=== PATIENT | female | born 1970 | race Caucasian/White ===

== ENCOUNTER 2021-04-29 12:56 | Emergency (ER) | payer OTHER, SELFPAY ==
--- NOTE | ~2021-04-29 | XR_ITS ---
EXAMINATION: XR foot LT min 3V DATE: 04/29/2021 13:18 INDICATION: Left foot injury. TECHNIQUE: 4 views of left foot were obtained. COMPARISON: None. FINDINGS: Bone alignment is normal. No fracture. There is mild osteoarthritis of first metatarsophala ngeal joint and some of the interphalangeal joints and midfoot joints. There are enthesophytes at the posterior and plantar aspects of calcaneal tuberosity. IMPRESSION: 1. Mild polyarticular osteoarthritis. Reviewed, dictated and finalized at location A.
--- NOTE | 2021-04-29 13:01 | ED.LOWEXIN ---
HPI - Extremity Injury (Lower) General Chief Complaint: Extremity Injury, Lower Stated Complaint: Left foot Pain Source: patient and RN notes reviewed Limitations: no limitations History of Present Illness HPI Narrative: The patient, previously mostly healthy presents with left ankle pain. Patient states she has 1 day history of lateral left ankle pain that began when she slipped off a diving board yesterday. No bleeding, deformity; symptoms are mild, worse with activity better with rest or elevation, located laterally. Related Data Home Medications Medication Instructions Recorded Confirmed atorvastatin 20 mg PO DAILY 04/29/21 04/29/21 cyanocobalamin (vitamin B-12) 1,000 mcg IM MONTHLY 04/29/21 04/29/21 levothyroxine 88 mcg PO DAILY 04/29/21 04/29/21 Allergies Allergy/AdvReac Type Severity Reaction Status Date / Time phenazopyridine Allergy Migraine Verified 04/29/21 13:19 [From Pyridium] Review of Systems Review of Systems: Narrative: General/Constitutional: No weight loss,fever Eyes: N0: Redness,discharge Ears/Nose/Throat: No: Epistaxis,ear discharge Respiratory: Denies: Hemoptysis Gastrointestinal: No Vomiting, Bleeding-rectal Skin: No Lumps, eruption Neurologic: No Focal Weakness,Sz Hematologic: Denies: Petechiae/Purpura Psychiatric: No: Suicida ideationl All Other Systems: Reviewed and Negative PMFSH Comments At time of signature, agree with nursing past medical, surgical, social and family history. There is no relevant family history pertinent to the presenting complaint Exam Narrative: Exam Narrative: General Appearance: Well appearing, , Conjunctiva clear Ears: External ear normal, Auditory canal normal Nose: Normal nose, Nares clear Mouth/Throat: Normal appearing, Normal lips, Supple Respiratory: Airway patent, No respiratory distress Musculoskeletal: Normal strength (mostly intact, limited flexion/extension by pain), Tenderness ( laterally, with mild decreased ROM), Swelling (laterally), Other (no anterior drawer, no collateral laxity, no Achilles tenderness, no fifth MT tenderness) Skin: Warm, Dry, Normal color Neurological: A&O x3, , Normal affect Course Course Emergency Course: Films visualized, interpreted by radiologist, agree, normal see report Vital Signs Vital signs: Vital Signs Temperature 97.6 F 04/29/21 13:16 Pulse Rate 83 04/29/21 13:16 Respiratory Rate 16 04/29/21 13:16 Blood Pressure 132/97 H 04/29/21 13:16 Pulse Oximetry 100 04/29/21 13:16 Temperature 97.6 F 04/29/21 13:19 Pulse Rate 83 04/29/21 13:19 Respiratory Rate 16 04/29/21 13:19 Blood Pressure 132/97 H 04/29/21 13:19 Pulse Oximetry 100 04/29/21 13:19 Discharge Plan Discharge Clinical Impression: Left ankle sprain Qualifiers: Encounter type: initial encounter Involved ligament of ankle: unspecified ligament Qualified Code(s): S93.402A - Sprain of unspecified ligament of left ankle, initial encounter Patient Disposition: Home, Self-Care Condition: Stable Instructions: Ankle Sprain (ED) Additional Instructions: Try rehab/therapy exercises [provided], OTC splint See podiatry, PMD in follow-up Prescriptions: New tramadol 50 mg tablet 50 mg PO Q6H PRN (Reason: pain) Qty: 15 RF: 1 No Action atorvastatin 20 mg tablet 20 mg PO DAILY RF: 0 levothyroxine 88 mcg tablet 88 mcg PO DAILY RF: 0 cyanocobalamin (vitamin B-12) 1,000 mcg/mL solution 1,000 mcg IM MONTHLY RF: 0 Follow-up/Referrals: PHYSICIAN,GLASS SELECTOR [Primary Care Provider] -
[2021-04-29 13:16] VITALS: BP 132/97; PULSE 83; RESP 16; TEMP 36.4; O2SAT 100
[2021-04-29 13:19] VITALS: BP 132/97; PULSE 83; RESP 16; TEMP 36.4; O2SAT 100
== END 2021-04-29 13:40 | disposition home or self-care (01) ==
PROVIDERS: Emergency Provider Emergency Medicine
DX: S93.402A Sprain of unspecified ligament of left ankle, initial encounter (principal); W17.89XA Other fall from one level to another, initial encounter; E03.9 Hypothyroidism, unspecified
CPT/HCPCS: 73630; 99203; G0463

== ENCOUNTER 2021-07-16 15:45 | Outpatient (CLI) | payer OTHER, SELFPAY ==
--- NOTE | ~2021-07-16 | US_ITS ---
EXAMINATION: US thyroid DATE: 07/16/2021 16:06 INDICATION: Nontoxic goiter. TECHNIQUE: Multiple ultrasound images of the thyroid were obtained. COMPARISON: None. FINDINGS: The right thyroid lobe measures 4.1 x 1.6 x 1.2 cm. The left thyroid lobe measures 3.4 x 1.1 x 1.1 c m. The thyroid demonstrates diffusely heterogeneous hypoechogenicity. Vascularity is normal. No disc rete nodule. IMPRESSION: 1. Heterogeneous thyroid, likely chronic lymphocytic (Asher) thyroiditis. Reviewed, dictated and finalized at location B.
== END 2021-07-16 15:46 | disposition home or self-care (01) ==
LOC: ANHIMG 15:48
PROVIDERS: Visit Provider Internal Medicine Endocrinology, Diabetes & Metabolism
DX: E04.9 Nontoxic goiter, unspecified (principal)
CPT/HCPCS: 76536

== ENCOUNTER 2021-09-11 16:07 | Outpatient (CLI) | payer OTHER, SELFPAY ==
--- NOTE | ~2021-09-11 | MR_ITS ---
EXAMINATION: MR brain IAC wo/w con DATE: 09/11/2021 17:12 INDICATION: Dizziness. Right-sided tinnitus and hearing loss. TECHNIQUE: Magnetic resonance imaging (MRI) of the brain, brainstem, and internal auditory canals was performed without and with 16 mL MultiHance intravenous contrast. Sequences included sagittal and ax ial T1-weighted FSE, axial diffusion-weighted FS EPI, axial T2*-weighted GRE, axial T2-weighted FLAIR Propeller, axial T2-weighted Propeller, small zvqba-bv-husz coronal FIESTA, small eypjp-zw-jqsj angelica nal T1-weighted FSE, and small qrhsa-wv-sssj axial T1-weighted SPGR. Postcontrast sequences included axial T1-weighted FSE, small xxwsd-rb-knpr coronal T1-weighted FSE, and small hywrk-it-dmck axial T1- weighted SPGR. Apparent diffusion coefficient (ADC) maps were created. COMPARISON: None. FINDINGS: There is no intracranial hemorrhage, acute infarction, or abnormal intracranial mass lesion . The ventricles are normal in size. The orbits are normal. The paranasal sinuses are clear. The inte rnal auditory canals and inner and middle ears are normal. The mastoid air cells are normal. IMPRESSION: 1. Normal brain. Reviewed, dictated and finalized at location A. IMPRESSION: 1. Normal brain.
[2021-09-11 16:32] LABS: Estimated Glomerular Filt Rate > 60
== END 2021-09-11 16:08 | disposition home or self-care (01) ==
PROVIDERS: PCP Internal Medicine Endocrinology, Diabetes & Metabolism; Visit Provider Otolaryngology
DX: R42 Dizziness and giddiness (principal)
CPT/HCPCS: 70553; A9577

== ENCOUNTER 2023-02-25 14:22 | Outpatient (CLI) | payer OTHER, SELFPAY ==
[2023-02-25 14:36] LABS: Basophils Percent Auto 0.3 % (0.2-1.2); Eosinophils Absolute Auto 0.2 K/mm3 (0-0.3); Eosinophils Percent Auto 4.4 % (0-4.4); Hematocrit 40.6 % (37.0-47.0); Hemoglobin 13.3 g/dL (12.0-15.0); Immature Granulocyte Absolute 0.01 K/mm3 (0.00-0.031); Immature Granulocyte Percent A 0.3 % (0-0.5); Lymphocytes Percent Auto 30.9 % (18.3-44.2); Mean Corpuscular HGB Conc 32.8 g/dl (32-36); Mean Corpuscular Hemoglobin 30.1 pg (26-34); Mean Corpuscular Volume 91.9 fl (80-100); Mean Platelet Volume 9.9 fl (7.4-10.4); Monocytes Absolute Auto 0.4 K/mm3 (0.1-0.6); Monocytes Percent Auto 10.1 % (2.6-8.5); Neutrophils Absolute Auto 2.1 K/mm3 (1.3-6.7); Platelet Count Result 239 k/mm3 (150-375); Red Blood Count 4.42 M/mm3 (4.2-5.4); Red Cell Distribution Width 12.7 % (11.5-14.5); White Blood Count 3.9 K/mm3 (4.5-10.0)
[2023-02-25 16:28] LABS: Alanine Aminotransferase 23 U/L (6-35); Albumin Level 4.5 g/dL (3.5-5.1); Alkaline Phosphatase 92 U/L (38-126); Anion Gap 11 mmol/L (8-16); Aspartate Amino Transferase 31 U/L (14-36); Bilirubin,Total 0.5 mg/dL (0.2-1.3); Blood Urea Nitrogen 15 mg/dL (7-17); Calcium 9.1 mg/dL (8.4-10.2); Carbon Dioxide 26 mmol/L (22-30); Chloride 101 mmol/L (98-107); Estimated Glomerular Filt Rate > 60; Glucose 86 mg/dL (65-110); Sodium 138 mmol/L (137-145)
[2023-02-25 16:43] LABS: Iron 62 ug/dL (37-170); Percent Iron Saturation 20 % (20-50)
[2023-02-25 17:46] LABS: Folic Acid 5.7 ng/mL (2.76->20)
[2023-02-28 09:30] LABS: Methylmalonic Acid 110 nmol/L (87-318)
== END 2023-02-25 14:23 | disposition home or self-care (01) ==
LOC: ANHLAB 14:23
PROVIDERS: PCP Internal Medicine Endocrinology, Diabetes & Metabolism; Visit Provider Internal Medicine Hematology & Oncology
DX: D64.9 Anemia, unspecified (principal)
CPT/HCPCS: 36415; 80053; 82607; 82728; 82746; 83540; 83550; 83921; 85025

== ENCOUNTER 2023-05-04 11:45 | Outpatient (CLI) | payer OTHER, SELFPAY ==
[2023-05-04 12:13] LABS: Basophils Percent Auto 0.4 % (0.2-1.2); Eosinophils Absolute Auto 0.1 K/mm3 (0-0.3); Eosinophils Percent Auto 3.1 % (0-4.4); Hematocrit 41.1 % (37.0-47.0); Hemoglobin 13.8 g/dL (12.0-15.0); Immature Granulocyte Absolute 0.01 K/mm3 (0.00-0.031); Immature Granulocyte Percent A 0.2 % (0-0.5); Lymphocytes Percent Auto 28.5 % (18.3-44.2); Mean Corpuscular HGB Conc 33.6 g/dl (32-36); Mean Corpuscular Hemoglobin 29.9 pg (26-34); Mean Corpuscular Volume 89.2 fl (80-100); Mean Platelet Volume 9.5 fl (7.4-10.4); Monocytes Absolute Auto 0.5 K/mm3 (0.1-0.6); Monocytes Percent Auto 10.1 % (2.6-8.5); Neutrophils Absolute Auto 2.6 K/mm3 (1.3-6.7); Neutrophils Percent Auto 57.7 % (45.5-73.1); Platelet Count Result 266 k/mm3 (150-375); Red Blood Count 4.61 M/mm3 (4.2-5.4); Red Cell Distribution Width 12.9 % (11.5-14.5); White Blood Count 4.6 K/mm3 (4.5-10.0)
[2023-05-04 16:17] LABS: Iron 70 ug/dL (37-170)
[2023-05-04 16:19] LABS: Alanine Aminotransferase 34 U/L (6-35); Albumin Level 4.6 g/dL (3.5-5.1); Alkaline Phosphatase 104 U/L (38-126); Anion Gap 10 mmol/L (8-16); Aspartate Amino Transferase 37 U/L (14-36); Bilirubin,Total 0.5 mg/dL (0.2-1.3); Blood Urea Nitrogen 14 mg/dL (7-17); Calcium 9.1 mg/dL (8.4-10.2); Carbon Dioxide 27 mmol/L (22-30); Chloride 101 mmol/L (98-107); Estimated Glomerular Filt Rate > 60; Glucose 93 mg/dL (65-110); Potassium 4.3 mmol/L (3.4-5.0); Sodium 138 mmol/L (137-145)
[2023-05-04 16:29] LABS: Percent Iron Saturation 21 % (20-50)
[2023-05-04 17:24] LABS: Folic Acid 5.8 ng/mL (2.76->20)
[2023-05-06 09:29] LABS: Methylmalonic Acid 107 nmol/L (87-318)
== END 2023-05-04 11:46 | disposition home or self-care (01) ==
LOC: ANHLAB 11:47
PROVIDERS: Visit Provider Internal Medicine Hematology & Oncology
DX: D64.9 Anemia, unspecified (principal)
CPT/HCPCS: 36415; 80053; 82607; 82728; 82746; 83540; 83550; 83921; 85025

== ENCOUNTER 2024-01-12 09:16 | Outpatient (CLI) | payer OTHER, SELFPAY ==
[2024-01-12 09:39] LABS: Basophils Percent Auto 0.5 % (0.2-1.2); Eosinophils Absolute Auto 0.2 K/mm3 (0-0.3); Eosinophils Percent Auto 4.2 % (0-4.4); Hematocrit 38.8 % (37.0-47.0); Lymphocytes Absolute Auto 1.08 K/mm3 (0.9-3.2); Lymphocytes Percent Auto 28.3 % (18.3-44.2); Mean Corpuscular HGB Conc 33.5 g/dl (32-36); Mean Corpuscular Hemoglobin 29.5 pg (26-34); Mean Corpuscular Volume 88.2 fl (80-100); Monocytes Absolute Auto 0.4 K/mm3 (0.1-0.6); Monocytes Percent Auto 9.4 % (2.6-8.5); Neutrophils Absolute Auto 2.2 K/mm3 (1.3-6.7); Neutrophils Percent Auto 57.6 % (45.5-73.1); Platelet Count Result 253 k/mm3 (150-375); Red Cell Distribution Width 13.5 % (11.5-14.5); White Blood Count 3.8 K/mm3 (4.5-10.0)
[2024-01-12 10:31] LABS: Iron 104 ug/dL (37-170)
[2024-01-12 10:38] LABS: Alanine Aminotransferase 23 U/L (6-35); Albumin Level 4.2 g/dL (3.5-5.1); Alkaline Phosphatase 95 U/L (38-126); Anion Gap 7 mmol/L (8-16); Aspartate Amino Transferase 34 U/L (14-36); Bilirubin,Total 0.6 mg/dL (0.2-1.3); Blood Urea Nitrogen 15 mg/dL (7-17); Calcium 9.5 mg/dL (8.4-10.2); Carbon Dioxide 30 mmol/L (22-30); Chloride 104 mmol/L (98-107); Estimated Glomerular Filt Rate > 60; Glucose 115 mg/dL (65-110); Potassium 4.1 mmol/L (3.4-5.0); Sodium 141 mmol/L (137-145)
[2024-01-12 10:43] LABS: Immunoglobulin A 565 mg/dL (70-400); Immunoglobulin G 1794 mg/dL (700-1600); Immunoglobulin M 78 mg/dL (40-230)
[2024-01-12 10:48] LABS: Percent Iron Saturation 36 % (20-50)
[2024-01-12 11:40] LABS: Folic Acid 11.5 ng/mL (2.76->20)
[2024-01-14 15:38] LABS: Albumin 4.2 g/dL (3.8-4.8); Alpha 1 Globulin 0.3 g/dL (0.2-0.3); Alpha 2 Globulin 0.8 g/dL (0.5-0.9); Beta 1 Globulin 0.5 g/dL (0.4-0.6); Gamma Globulin 1.5 g/dL (0.8-1.7); Protein, Total 7.9 g/dL (6.1-8.1)
[2024-01-14 21:09] LABS: Lambda Light Chain 20.6 mg/L (5.7-26.3)
== END 2024-01-12 09:17 | disposition home or self-care (01) ==
PROVIDERS: Visit Provider Internal Medicine Hematology & Oncology
DX: D64.9 Anemia, unspecified (principal)
CPT/HCPCS: 36415; 80053; 82607; 82728; 82746; 82784; 83540; 83550; 83883; 84155; 84165; 85025

== ENCOUNTER 2024-02-17 14:32 | Emergency (ER) | payer OTHER, SELFPAY ==
--- NOTE | ~2024-02-17 | XR_ITS ---
EXAMINATION: XR finger 4th LT min 2V INDICATION: Left fourth finger pain, initial encounter TECHNIQUE: Three views of the left fourth finger are obtained. COMPARISON: None available FINDINGS: There is an acute, traumatic, closed, comminuted, transverse fracture in the proximal neck of the fourth proximal phalanx. There is mild dorsal angulation at the fracture site. One plane of th e fracture may extend to the fourth metacarpophalangeal joint. There is mild osteoarthritis of the vi sualized interphalangeal joints. There is soft tissue swelling of the fourth finger IMPRESSION: 1. Comminuted fracture in the proximal neck of the fourth proximal phalanx with mild angulation and p ossible extension to the metacarpophalangeal joint. Reviewed, dictated and finalized at location F. IMPRESSION: 1. Comminuted fracture in the proximal neck of the fourth proximal phalanx with mild angulation and possible extension to the metacarpophalangeal joint.
--- NOTE | 2024-02-17 14:54 | ED.UPPEXIN ---
HPI - Extremity Injury (Upper) General Chief Complaint: Extremity Injury, Upper Stated Complaint: finger injury Time Seen by Provider: 02/17/24 14:54 Source: patient Mode of arrival: ambulatory Limitations: no limitations History of Present Illness HPI narrative: 53 y/o female presented for c/o left ring finger pain and swelling after falling today at work. 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 Pt removed her wedding rings immediately. Endorses decreased ROM of the finger due to pain. Most pain to the knuckle (MCP). Has applied ice and taken ibuprofen. Related Data Home Medications Medication Instructions Recorded Confirmed cyanocobalamin (vitamin B-12) 1,000 mcg IM MONTHLY 04/29/21 04/29/21 1,000 mcg/mL injection solution levothyroxine 100 mcg tablet 100 mcg PO DAILY 02/17/24 02/17/24 (Synthroid) venlafaxine 37.5 mg mg PO 02/17/24 capsule,extended release 24 hr Allergies Allergy/AdvReac Type Severity Reaction Status Date / Time iodine Allergy Hives Verified 02/17/24 14:52 iohexol AdvReac Migraine Verified 02/17/24 14:53 [From contrast - CT, X-RAY] phenazopyridine AdvReac Migraine Verified 02/17/24 14:52 [From Pyridium] Review of Systems Review of Systems: CONSTITUTIONAL: Denies body aches, fever, chills EYES: Denies visual changes ENT: Denies rhinorrhea, congestion CARDIOVASCULAR: Denies chest pain, palpitations, or edema. RESPIRATORY: Denies cough or dyspnea. SKIN: Denies rash, itching, or wounds. MUSCULOSKELETAL: Reports left ring finger pain Denies back pain, neck pain NEUROLOGIC: Denies headache, numbness, tingling, or weakness. All systems reviewed & are unremarkable except as noted in HPI and below PMFSH Comments At time of signature, I have reviewed and agree with nursing past medical, surgical, social and family history unless otherwise noted. Please see nursing chart for further information. There is no relevant family history pertinent to the presenting complaint Exam Narrative: GENERAL: Well-appearing CHEST: Speaks in full sentences. No respiratory distress. HEART: Regular rate and rhythm. Normal and equal peripheral pulses. EXTREMITIES: Left 4th digit has slightly decreased range of motion with flexion/extension due to pain with movement. Mild TTP to DIP and MCP, mild swelling and ecchymosis to palmar surface of MCP. Normal strength and sensation. No open wounds, or obvious deformity; alignment normal, pulse palpable and equal bilaterally, skin warm, dry, pink. Capillary refill less than 3 seconds. SKIN: Warm, dry NEURO: Alert and oriented x3. PSYCH: Normal mood and affect Course Course Emergency Course: Patient is aware of diagnosis, understands and agrees to treatment plan. Anticipatory guidance given. Patient agrees to follow-up as directed and is aware of reasons to seek care at the emergency department. Portions of this record may have been created with voice recognition software Level of Care: Express Care Visit Vital Signs Vital signs: Vital Signs Temperature 98.0 F 02/17/24 14:59 Pulse Rate 86 02/17/24 14:59 Respiratory Rate 16 02/17/24 14:59 Blood Pressure 141/86 H 02/17/24 14:59 Pulse Oximetry 100 02/17/24 14:59 Oxygen Delivery Room Air 02/17/24 14:59 Temperature 98.0 F 02/17/24 14:59 Pulse Rate 86 02/17/24 14:59 Respiratory Rate 16 02/17/24 14:59 Blood Pressure 141/86 H 02/17/24 14:59 Pulse Oximetry 100 02/17/24 14:59 Oxygen Delivery Room Air 02/17/24 14:59 Reviewed Procedures Orthopedic Splinting/Casting left 4th digit: Splinting/Casting Date: 02/17/24 Upper Extremity Immobilizer: aluminum form splint MDM - Extremity Injury (Upper) MDM Narrative Medical decision making narrative: Results of x-ray reviewed with patient, Comminuted fracture in the proximal neck of the fourth proximal phalanx with mild angulation and possible extension to the metacarpophalangeal joint.
[2024-02-17 14:59] VITALS: BP 141/86; PULSE 86; RESP 16; TEMP 36.7; O2SAT 100
== END 2024-02-17 15:50 | disposition home or self-care (01) ==
PROVIDERS: Emergency Provider Nurse Practitioner Family
DX: S62.615A Displaced fracture of proximal phalanx of left ring finger, initial encounter for closed fracture (principal); W03.XXXA Other fall on same level due to collision with another person, initial encounter; Y99.0 Civilian activity done for income or pay; E78.00 Pure hypercholesterolemia, unspecified; E03.9 Hypothyroidism, unspecified
CPT/HCPCS: 29130; 73140; 99214; G0463

== ENCOUNTER 2024-02-18 15:02 | Outpatient (CLI) | payer OTHER, SELFPAY ==
--- NOTE | ~2024-02-18 | XR_ITS ---
XR hand LT min 3V DATE: 02/18/2024 15:29 INDICATION: Fourth digit injury TECHNIQUE: 4 views COMPARISON: 02/17/2024 left fourth digit FINDINGS: Of the anteromedial forearm, wrist and hand. Virtually nondisplaced transverse proximal shaft fracture of the proximal phalanx of the fourth digit , without significant change in position or alignment since 02/17/2024. IMPRESSION: Splinted recent virtually nondisplaced fracture of the proximal shaft of the proximal pha lanx of the fourth digit Reviewed, dictated and finalized at location L. IMPRESSION: Splinted recent virtually nondisplaced fracture of the proximal sha ft of the proximal phalanx of the fourth digit
== END 2024-02-18 15:03 | disposition home or self-care (01) ==
PROVIDERS: Visit Provider Physician Assistant Surgical
DX: S62.615D Displaced fracture of proximal phalanx of left ring finger, subsequent encounter for fracture with routine healing (principal); X58.XXXD Exposure to other specified factors, subsequent encounter
CPT/HCPCS: 73130

== ENCOUNTER 2024-02-29 10:41 | Outpatient (CLI) | payer OTHER, SELFPAY ==
--- NOTE | ~2024-02-29 | XR_ITS ---
Left Hand Technique: PA, oblique, and lateral views were obtained. Clinical History: Fracture follow-up COMPARISON: 02/18/2024 Findings: Fracture the proximal portion of the fourth proximal phalanx is essentially unchanged. Over lying cast obscures fine bony detail. Joint spaces are preserved. Soft tissues are unremarkable. Impression: Stable fracture of the fourth proximal phalanx. Reviewed, dictated and finalized at location M. Impression: Stable fracture of the fourth proximal phalanx.
== END 2024-02-29 10:42 | disposition home or self-care (01) ==
LOC: ANHIMG 10:49
PROVIDERS: Visit Provider Physician Assistant Surgical
DX: S62.615D Displaced fracture of proximal phalanx of left ring finger, subsequent encounter for fracture with routine healing (principal); X58.XXXD Exposure to other specified factors, subsequent encounter
CPT/HCPCS: 73130

== ENCOUNTER 2024-04-03 11:07 | Outpatient (CLI) | payer OTHER, SELFPAY ==
--- NOTE | ~2024-04-03 | XR_ITS ---
EXAMINATION: XR hand LT min 3V DATE: 04/03/2024 11:21 INDICATION: Unspecified fracture of left hand fourth proximal phalanx. TECHNIQUE: 4 views of left hand were obtained. COMPARISON: Left hand radiographs 02/29/2024, 02/18/2024 FINDINGS: There is an oblique fracture of proximal metaphysis of fourth proximal phalanx. The distal fracture fragment demonstrates 15 degrees dorsal ulnar angulation. Splint material obscures fine bony detail. There is mild osteoarthritis of some of the interphalangeal joints. IMPRESSION: 1. Unchanged oblique fracture of proximal metaphysis of fourth proximal phalanx. Reviewed, dictated and finalized at location A. IMPRESSION: 1. Unchanged oblique fracture of proximal metaphysis of fourth proximal phalanx .
== END 2024-04-03 11:08 | disposition home or self-care (01) ==
PROVIDERS: Visit Provider Physician Assistant Surgical
DX: S62.615D Displaced fracture of proximal phalanx of left ring finger, subsequent encounter for fracture with routine healing (principal); X58.XXXD Exposure to other specified factors, subsequent encounter
CPT/HCPCS: 73130

== ENCOUNTER 2024-07-05 11:47 | Outpatient (CLI) | payer OTHER, SELFPAY ==
[2024-07-05 12:11] LABS: Basophils Percent Auto 0.2 % (0.2-1.2); Eosinophils Absolute Auto 0.1 K/mm3 (0-0.3); Eosinophils Percent Auto 1.2 % (0-4.4); Hematocrit 37.8 % (37.0-47.0); Hemoglobin 12.4 g/dL (12.0-15.0); Immature Granulocyte Absolute 0.01 K/mm3 (0.00-0.031); Immature Granulocyte Percent A 0.2 % (0-0.5); Lymphocytes Percent Auto 29.9 % (18.3-44.2); Mean Corpuscular HGB Conc 32.8 g/dl (32-36); Mean Corpuscular Hemoglobin 29.3 pg (26-34); Mean Corpuscular Volume 89.4 fl (80-100); Mean Platelet Volume 9.2 fl (7.4-10.4); Monocytes Absolute Auto 0.4 K/mm3 (0.1-0.6); Monocytes Percent Auto 9.2 % (2.6-8.5); Neutrophils Absolute Auto 2.4 K/mm3 (1.3-6.7); Neutrophils Percent Auto 59.3 % (45.5-73.1); Platelet Count Result 251 k/mm3 (150-375); Red Blood Count 4.23 M/mm3 (4.2-5.4); Red Cell Distribution Width 13.2 % (11.5-14.5)
[2024-07-05 12:52] LABS: Anion Gap 9 mmol/L (4-12); Blood Urea Nitrogen 19 mg/dL (7-17); Calcium 9.5 mg/dL (8.4-10.2); Carbon Dioxide 30 mmol/L (22-30); Chloride 101 mmol/L (98-107); Estimated Glomerular Filt Rate > 60; Glucose 87 mg/dL (65-110); Potassium 3.9 mmol/L (3.4-5.0); Sodium 140 mmol/L (137-145)
[2024-07-05 13:14] LABS: Iron 102 ug/dL (37-170)
[2024-07-05 13:24] LABS: Percent Iron Saturation 34 % (20-50)
[2024-07-05 14:00] LABS: Folic Acid 13.7 ng/mL (2.76->20); Vitamin B12 > 1000.0 pg/mL (239-931)
== END 2024-07-05 11:48 | disposition home or self-care (01) ==
PROVIDERS: Visit Provider Internal Medicine Hematology & Oncology
DX: D64.9 Anemia, unspecified (principal)
CPT/HCPCS: 36415; 80048; 82607; 82728; 82746; 83540; 83550; 85025

== ENCOUNTER 2025-01-13 09:25 | Outpatient (CLI) | payer OTHER, SELFPAY ==
--- OUTSIDE RECORDS SUMMARY | 2025-01-13 09:33 | XMS_ITS | Clinical Summary ---
Author Organization [facility] Address [address] [place] [address] Care Team Providers Care Market Risk Analyst Name Role Phone Jasbir Elizalde MD Primary Care Provider Allergies Active Allergy Reactions Criticality Noted Date Comments Iodinated Contrast Media Other (See comments) Medium 10/05/2024 Double vision, migraines Iodine Rash Medium 02/25/2023 Phenazopyridine Headache Low 01/18/2015 Medications cetirizine (ZyrTEC) 10 mg tablet Take 1 tablet (10 mg total) by mouth daily Active cyanocobalamin (Vitamin B-12) 1,000 mcg/mL injection Inject 1 mL (1,000 mcg total) into the muscle as instructed once a week 023 Active syringe with needle (BD Luer-Jatin Syringe) 3 mL 25 gauge x 1 syringe Use with Vitamin B12 injection monthly. 023 Active syringe with needle 1 mL 27 x /2 syringe Use with B12 injections. 023 Active naproxen sodium 220 mg capsule Take 2 capsules by mouth as needed Active Eclipse Syringe 3 mL 25 gauge x 1 syringe USE DIRECTED MONTHLY Active venlafaxine XR (EFFEXOR-XR) 75 mg 24 hr capsule Take by mouth daily Active Synthroid 100 mcg tabletIndications :Acquired hypothyroidism TAKE 1 TABLET EVERY MORNING BEFORE BREAKFAST FOR HYPOTHYROIDISM 30 tablet 2 025 Active levothyroxine (Synthroid) 100 mcg tabletIndications :Acquired hypothyroidism TAKE 1 TABLET EARLY IN THE MORNING BEFORE BREAKFAST 30 tablet 2 024 2024 Discontinued Active Problems Problem Noted Date Diagnosed Date Acquired hypothyroidism 01/07/2024 Assessment & Plan (12/02/2024 10:01 AM PERSONAL INJURY LAW SPECIALIST): Chronic problem. Reports increased hypothyroid symptoms with decrease in Synthroid. Aware to take 1st thing in morning, 30-60 minutes before food/drink/other medications. Will update TFTs today (goes to [facility]). Verified that she uses [facility]. Aware to check results/results letter in [facility]. Will contact by phone if needed. Assessment & Plan (06/01/2024 11:56 AM CDT): Chronic problem. Reports increased hypothyroid symptoms with decrease in Synthroid. Will update TFTs today (goes to [facility]). Aware to take 1st thing in morning, 30-60 minutes before food/drink/other medications. Assessment & Plan (01/07/2024 3:47 PM PERSONAL INJURY LAW SPECIALIST): Goal of treatment is a normal TSH Update TFTs Adjust dose of Synthroid if indicated ( Send rx to [facility] ) Encounters Date Type Department Care Team Description 12/19/2024 Telephone [facility] [address] [place] [phone] Susanna Martins NP Reschedule 12/05/2024 Orders Only [facility] [address] [place] [phone] Susanna Martins NP Acquired hypothyroidism (Primary Dx) 12/02/2024 10:00 AM PERSONAL INJURY LAW SPECIALIST Office Visit [facility] [address] [place] [phone] Susanna Martins NP Acquired hypothyroidism (Primary Dx) 12/02/2024 Telephone [facility] [address] [place] [phone] Susanna Martins NP Lab orders from Last 3 Months Surgical History Surgery Date Site/Laterality Comments BLADDER SURGERY APPENDECTOMY Medical History Medical History Date Comments Hypothyroidism due to acquired atrophy of thyroi d Family History Medical History Relation Name Comments Cancer Father Family history of malignant neoplasm - (Added by TW Conv) Heart disease Father Family history of cardiac disorder - (Added by TW Conv) Hypertension Father Family history of hypertension - (Added by TW Conv) Lung cancer Mother Family history of lung cancer - (Added by TW Conv) Relation Name Status Comments Father Mother Social History Tobacco Use Types Packs/Day Years Used Date Smoking Tobacco: Never Smokeless Tobacco: Never Comments Unknown Sex and Gender Information Value Date Recorded Sex Assigned at Not on file Legal Sex Female 4:00 AM PERSONAL INJURY LAW SPECIALIST Gender Identity Not on file Sexual Orientation Not on file Obstetrics History Last Filed Vital Signs Vital Sign [place] Time Taken Comments Blood Pressure 122/82 12/02/2024 9:50 AM PERSONAL INJURY LAW SPECIALIST Pulse 85 12/02/2024 9:50 AM PERSONAL INJURY LAW SPECIALIST Temperature - - Respiratory Rate 18 12/02/2024 9:50 AM PERSONAL INJURY LAW SPECIALIST Oxygen Saturation 99% 09/13/2015 9:13 AM CDT Inhaled Oxygen Concentration - - Weight 88 kg (194 lb) 12/02/2024 9:50 AM PERSONAL INJURY LAW SPECIALIST Height 175.3 cm (5' 9.02 ) 12/02/2024 9:50 AM CS T Body Mass Index 28.64 12/02/2024 9:50 AM PERSONAL INJURY LAW SPECIALIST Plan of Treatment Health Maintenance Due Date Last Done Comments Cervical Cancer Screening 1970 Colon Cancer Screening-Colonoscopy 1970 Depression Screening 1970 Hepatitis C Screening 1970 Regular Well Visit/Exam 18-64 1988 DTaP/Tdap/Td Vaccine (1 - Tdap) 09/16/2008 09/15/2008 Zoster Vaccine (1 of 2) 2020 Covid-19 Vaccine (2 - season) 2024 12/25/2021 Influenza Vaccine (#1) 2024 7, 09/18/2016, 09/13/2015 Breast Cancer Screening-Mammogram 05/02/2025 05/02/2024, 05/26/2022, 05/26/2022, Additional history exists Pneumococcal vaccine <65 Aged Out No longer eligible based on patient's age to complete this topic Procedures Procedure Name Priority Date/Time Associated Diagnosis Comments T4, FREE Routine 12/02/2024 11:28 AM PERSONAL INJURY LAW SPECIALIST Acquired hypothyroidism TSH Routine 12/02/2024 11:28 AM PERSONAL INJURY LAW SPECIALIST Acquired hypothyroidism SCREENING MAMMOGRAM BILATERAL W DONN Schedule Routine, Read Routine (OP Routine) 05/02/2024 11:20 AM CDT Screening mammogram, encounter for from Last 3 Months or Most Recently Relevant to Health Maintenance Results * (ABNORMAL) TSH (12/02/2024 11:28 AM PERSONAL INJURY LAW SPECIALIST) TSH 0.159(L) 0.450 - 4.500 uIU/mL [facility] - 01 Blood 12/02/2024 11:2 8 AM PERSONAL INJURY LAW SPECIALIST 12/02/2024 Narrative [facility] - 12/03/2024 9:08 AM PERSONAL INJURY LAW SPECIALIST Performed at: [address] [place] [address] [id number] Assembly Supervisor: Akash Melendez PhD, Phone: [phone] us Susannaval Martins DOOR TENDER LAB BLOOD ORDERABLES Shelia l Result Performing Organization Address [facility] Co de Phone Number [facility] - * T4, free (12/02/2024 11:28 AM PERSONAL INJURY LAW SPECIALIST) T4,Free(Direct) 1.25 0.82 - 1.77 ng/dL [facility] - 01 Blood 12/02/2024 11:2 8 AM PERSONAL INJURY LAW SPECIALIST 12/02/2024 Narrative [facility] - 12/03/2024 9:08 AM PERSONAL INJURY LAW SPECIALIST Performed at: [address] [place] [address] [id number] Assembly Supervisor: Akash Melendez PhD, Phone: [phone] us Susanna Martins DOOR TENDER LAB BLOOD ORDERABLES Shelia l Result Performing Organization Address [facility] Co de Phone Number [facility] - 01 * Screening Mammogram Bilateral W Donn (05/02/2024 11:20 AM CDT) Anatomical Region Laterality Modality Breast Bilateral Mammography Narrative 05/02/2024 12:15 PM CDT Examination: Screening Mammogram Bilateral W Donn: 05/02/24 Clinical: Screening mammogram, encounter for. Prior Study Comparisons: Comparison was made to the prior available relevant studies at the time of interpretation. Findings: Bilateral No significant masses, malignant type calcifications, skin thickening, nipple retraction, or significant lymphadenopathy is noted in either breast. The CAD review showed no significant findings. The breasts are heterogeneously dense, which may obscure small masses. The patient will be notified of results by letter. Impression: BI-RADS ATLAS category (overall): 1 - Negative There is no mammographic evidence of malignancy. Routine Screening Mammogram in 1 Yr is recommended for bilateral Overall Assessment: 1 - Negative us Self Screening Mammogram IMG MAMMO PROCEDURES Fi nal Result from Last 3 Months or Most Recently Relevant to Health Maintenance Insurance Mpayy OPEN ACCESS Mpayy OPEN ACCESS Care Teams Market Risk Analyst Relationship Specialty Start Date End Date Jasbir Elizalde MD PCP - General 09/07/17
--- OUTSIDE RECORDS SUMMARY | 2025-01-13 09:33 | XMS_ITS | Encounter Summary ---
Author Organization [facility] Healthcare Address [address] [place] [address] Care Team Providers Care Radio Time Buyer Name Role Phone Jasbir Elizalde MD Primary Care Provider [phone] Encounter Details Date Type Department Care Team (Late st Contact Info) Description 06/21/2020 Telephone [facility] [address] [place] [address] [address] [place] [address] Arline Greenwood RT Social History Tobacco Use Types Packs/Day Years Used Date Smoking Tobacco: Never Comments Unknown Sex and Gender Information Value Date Recorded Sex Assigned at Not on file Legal Sex Female 4:00 AM CLINICAL MICROBIOLOGIST Gender Identity Not on file Sexual Orientation Not on file documented as of this encounter Plan of Treatment Not on file documented as of this encounter Visit Diagnoses Not on filedocumented in this encounter Care Teams Radio Time Buyer Relationship Specialty Start Date End Date Jasbir Elizalde MD PCP - General 09/07/17 documented as of this encounter
--- OUTSIDE RECORDS SUMMARY | 2025-01-13 09:33 | XMS_ITS | Referral Summary ---
Author Organization [facility] Address [address] [place] [address] Care Team Providers Care Clinic Lead Name Role Phone Jasbir Elizalde MD Primary Care Provider [phone] Encounters Date Type Department Care Team Description 12/19/2024 Telephone [facility] [address] [place] [phone] Susanna Martins NP Reschedule 12/05/2024 Orders Only [facility] [address] [place] [phone] Susanna Martins NP Acquired hypothyroidism (Primary Dx) 12/02/2024 Telephone [facility] [address] [place] [phone] Susanna Martins NP Lab orders 12/02/2024 10:00 AM PITCHING COACH Office Visit [facility] [address] [place] [phone] Susanna Martins NP Acquired hypothyroidism (Primary Dx) from Last 3 Months Allergies Active Allergy Reactions Criticality Noted Date [...] syringe with needle 1 mL 27 x 1/2 syringe Use with B12 injections. 023 Active naproxen sodium 220 mg capsule Take 2 capsules by mouth as needed Active Eclipse Syringe 3 mL 25 gauge x 1 syringe USE DIRECTED MONTHLY 024 Active venlafaxine XR (EFFEXOR-XR) 75 mg 24 hr capsule Take by mouth daily 024 Active Synthroid 100 mcg tabletIndications :Acquired hypothyroidism TAKE 1 TABLET EVERY MORNING BEFORE BREAKFAST FOR HYPOTHYROIDISM 30 tablet 2 025 Active levothyroxine (Synthroid) 100 mcg tabletIndications :Acquired hypothyroidism TAKE 1 TABLET EARLY IN THE MORNING BEFORE BREAKFAST 30 tablet 2 024 2024 Discontinued Active Problems Problem Noted Date Diagnosed Date Acquired hypothyroidism 01/07/2024 Assessment & Plan (12/02/2024 10:01 AM PITCHING COACH): Chronic problem. Reports increased hypothyroid symptoms with decrease in Synthroid. Aware to take 1st thing in morning, 30-60 minutes before food/drink/other medications. Will update TFTs today (goes to [facility]). Verified that she uses [facility]. Aware to check results/results letter in [facility]. Will contact by phone if needed. Assessment & Plan (06/01/2024 11:56 AM CDT): Chronic problem. Reports increased hypothyroid symptoms with decrease in Synthroid. Will update TFTs today (goes to [facility]). Aware to take 1st thing in morning, 30-60 minutes before food/drink/other medications. Assessment & Plan (01/07/2024 3:47 PM PITCHING COACH): Goal of treatment is a normal TSH Update TFTs Adjust dose of Synthroid if indicated ( Send rx to [facility] ) Social History Tobacco Use Types Packs/Day Years Used Date Smoking Tobacco: Never Smokeless Tobacco: Never Comments Unknown Sex and Gender Information Value Date Recorded Sex Assigned at Not on file Legal Sex Female 4:00 AM PITCHING COACH Gender Identity Not on file Sexual Orientation Not on file Last Filed Vital Signs Vital Sign Reading Time Taken Comments Blood Pressure 122/82 12/02/2024 9:50 AM PITCHING COACH Pulse 85 12/02/2024 9:50 AM PITCHING COACH Temperature - - Respiratory Rate 18 12/02/2024 9:50 AM PITCHING COACH Oxygen Saturation 99% 09/13/2015 9:13 AM CDT Inhaled Oxygen Concentration - - Weight 88 kg (194 lb) 12/02/2024 9:50 AM PITCHING COACH Height 175.3 cm (5' 9.02 ) 12/02/2024 9:50 AM CS T Body Mass Index 28.64 12/02/2024 9:50 AM PITCHING COACH Plan of Treatment Not on file Procedures Procedure Name Priority Date/Time Associated Diagnosis Comments T4, FREE Routine 12/02/2024 11:28 AM PITCHING COACH Acquired hypothyroidism TSH Routine 12/02/2024 11:28 AM PITCHING COACH Acquired hypothyroidism SCREENING MAMMOGRAM BILATERAL W DONN Schedule Routine, Read Routine (OP Routine) 05/02/2024 11:20 AM CDT Screening mammogram, encounter for from Last 3 Months or Most Recently Relevant to Health Maintenance Results * (ABNORMAL) TSH (12/02/2024 11:28 AM PITCHING COACH) TSH 0.159(L) 0.450 - 4.500 uIU/mL [facility] - 01 Blood 12/02/2024 11:2 8 AM PITCHING COACH 12/02/2024 Narrative [facility] - 12/03/2024 9:08 AM PITCHING COACH Performed at: 01 - [facility] [address] [id number] Key Attendant: Akash Melendez PhD, Phone: [phone] us Susanna Martins HIGH SCHOOL COMBINATION TEACHER LAB BLOOD ORDERABLES Shelia l Result [facility] - 01 * T4, free (12/02/2024 11:28 AM PITCHING COACH) T4,Free(Direct) 1.25 0.82 - 1.77 ng/dL [facility] - 01 Blood 12/02/2024 11:2 8 AM PITCHING COACH 12/02/2024 Narrative [facility] - 12/03/2024 9:08 AM PITCHING COACH Performed at: - [facility] [id number] Key Attendant: Akash Melendez PhD, Phone: [phone] Susanna Martins HIGH SCHOOL COMBINATION TEACHER LAB BLOOD ORDERABLES Shelia l Result [facility] - 01 * Screening Mammogram [...] Most Recently Relevant to Health Maintenance Insurance [employer]! OPEN ACCESS [employer] OPEN ACCESS Care Teams Clinic Lead Relationship Specialty Start Date End Date Jasbir Elizalde MD PCP - General 09/07/17
--- OUTSIDE RECORDS SUMMARY | 2025-01-13 09:33 | XMS_ITS | Clinical Summary ---
Author Organization [facility] Address [address] [place] [address] Care Team Providers Care Upper Cutter Machine Name Role Phone Unavailable Primary Care Provider Unavailabl e Social History Tobacco Use Types Packs/Day Years Used Date Smoking Tobacco: Never Assessed Comments Unknown Sex and Gender Information Value Date Recorded Sex Assigned at Not on file Legal Sex Female 7:19 PM CDT Gender Identity Not on file Sexual Orientation Not on file Plan of Treatment Health Maintenance Due Date Last Done Comments Cervical Cancer Screening Pa p Smear (Age 30 to 64) Every 3 Years 1970 Colorectal Cancer Screening Colonoscopy (10 Years) 1970 Annual Physical 1973 Hepatitis C 1988 DTaP, Tdap and Td Vaccines ( 1 - Tdap) 1989 Hepatitis B Vaccines (1 of 3 - 19+ 3-dose series) 1989 Cervical Cancer Screening Pa p with HPV Testing (Age 30 to 64) Every 5 Years 2000 Cervical Cancer Screening with HPV 2000 Mammogram Screening 2010 Zoster Vaccines (1 of 2) 2020 COVID-19 Vaccine (2023-2 5 season) 2024 Influenza Adult (#1) 2024 Meningococcal B Vaccine Aged Out No l onger eligible based on patient's age to complete this topic Meningococcal Vaccine Aged Out No arleth karrie eligible based on patient's age to complete this topic Pneumococcal Vaccine: Pediat rics (0 to 5 Years) and At-Risk Patients (6 to 64 Years) Aged Out No longer eligible b ased on patient's age to complete this topic RSV Immunizations Under 20 Months Aged Out No longer eligible based on patient's age to complete this topic
--- OUTSIDE RECORDS SUMMARY | 2025-01-13 09:33 | XMS_ITS | Clinical Summary ---
Author Organization [facility] Address [address] [place] [address] Phone Care Team Providers Care Insecticide Mixer Name Role Phone Jasbir Elizalde MD Primary Care Provider [phone] Allergies Active Allergy Reactions Criticality Noted Date Comments Iodinated Contrast Media Other (see Comments) Medium 10/05/2024 Double vision, migraines Iodine Hives Medium 10/05/2024 Phenazopyridine Other (see Comments) 10/05/2024 Medications levothyroxine (Synthroid) 100 MCG Tablet Take 100 mcg by mouth daily. Active cyanocobalamin (VITAMIN B-12) 1000 MCG/ML Solution 1,000 mcg by Intramuscular route every 14 days. Active venlafaxine (EFFEXOR) 75 MG Tablet Take 1 Tablet by mouth daily. Active cetirizine (ZyrTEC) 10 MG Tablet Take 1 Tablet by mouth daily. Active ibuprofen (Motrin IB) 200 MG Tablet Take 2 Tablets by mouth every 8 hours as needed for Fever or Mild or more severe pain. Active Naproxen Sodium (Aleve) 220 MG Capsule Take 2 Capsules by mouth as needed for Other. Active Active Problems No known active problems Encounters Date Type Department Care Team Description 10/20/2024 11:07 AM LOADING MACHINE ADJUSTER Anesthesia Event [facility] [address] [place] [address] Apurva Cleary APN, TRAIN CONTROLLER 10/20/2024 10:55 AM LOADING MACHINE ADJUSTER - 10/20/2024 11:41 AM LOADING MACHINE ADJUSTER Surgery [facility] [address] [place] [address] Samuel Montana MD EGD with Biopsy 10/20/2024 9:38 AM LOADING MACHINE ADJUSTER - 10/20/2024 12:26 PM LOADING MACHINE ADJUSTER Hospital Encounter [facility] [address] [place] [address] Samuel Montana MD Discharge Disposition: Discharged to home or Selfcare 10/17/2024 Travel from Last 3 Months Immunizations Immunization Administration Dates Next Due Covid-19, Mrna, Lnp-s, Pf, 30 Mcg/0.3 Ml Dose (P fizer) 12/25/2021 Family History Medical History Relation Name Comments Cancer Father Lung Cancer Mother Relation Name Status Comments Father Mother Sister 1 Alive Sister 2 Alive Sister 3 Alive Social History Tobacco Use Types Packs/Day Years Used Date Smoking Tobacco: Never Smokeless Tobacco: Never Tobacco Cessation:Counseling Given: Not Answered Alcohol Use Standard Drinks/Week Comments Yes 0 (1 standard drink = 0.6 oz pur e alcohol) 6 margaritias/beer a week Comments Unknown Sex and Gender Information Value Date Recorded Sex Assigned at Female 10/20/2024 9:34 AM LOADING MACHINE ADJUSTER Legal Sex Female 11:30 AM LOADING MACHINE ADJUSTER Gender Identity Female 10/21/2024 11:00 AM LOADING MACHINE ADJUSTER Sexual Orientation Not on file Last Filed Vital Signs Vital Sign Reading Time Taken Comments Blood Pressure 130/75 10/20/2024 12:18 PM LOADING MACHINE ADJUSTER Pulse 71 10/20/2024 12:18 PM LOADING MACHINE ADJUSTER Temperature 36.4 C (97.6 F) 10/20/2024 11:48 AM LOADING MACHINE ADJUSTER Simultaneous filing. User may not have seen previous data. Respiratory Rate 12 10/20/2024 12:1 8 PM LOADING MACHINE ADJUSTER Oxygen Saturation 100% 10/20/2024 12: 18 PM LOADING MACHINE ADJUSTER Inhaled Oxygen Concentration - - Weight 83 kg (183 lb) 10/20/2024 10:02 AM LOADING MACHINE ADJUSTER Height 175.3 cm (5' 9 ) 10/05/2024 11:0 0 AM LOADING MACHINE ADJUSTER Body Mass Index 27.02 10/05/2024 11:00 AM LOADING MACHINE ADJUSTER Plan of Treatment Health Maintenance Due Date Last Done Comments Hepatitis C Virus (HCV) Screening 1970 TdaP Immunization 1970 Pap Smear 1991 Cervical Cancer Screening (CCS) 2000 HPV/Cotest 2000 Hepatitis B Immunization (2 of 3 - 19+ 3-dose series) 10/24/2002 09/26/2002 Cologuard 2020 Immunochemical Fecal Occult Blood 2020 Pneumococcal Immunization (5 0+ years) (1 of 1 - PCV) 2020 Zoster Immunization (1 of 2) 2020 Influenza Immunization (#1) 2024 1103/2017, 09/18/2016 SARS-COV-2 Immunization ( season) 2024 12/25/2021, 02/11/2021, 01/21/2021 Mammogram 05/02/2026 05/02/2024, 05/26/2022, 06/22/2020 Colonoscopy 10/20/2034 10/20/2024 Colorectal Cancer Screening 10/20/2034 Respiratory Syncytial Virus (RSV) Immunization (Adult) (1 - 1-dose 75+ series) 2045 10/20/2024 DTaP/Tdap/Td Immunization Discontinued 09/15/2008 Meningococcal Immunization (ACWY) Aged Out No longer eligible based on patient's age to complete this topic Pneumococcal Immunization Combined Aged Out No longer eligible based on patient's age to complete this topic Rotavirus Immunization Aged Out No lo nger eligible based on patient's age to complete this topic Procedures Procedure Name Priority Date/Time Associated Diagnosis Comments SURGICAL PATHOLOGY [facility] Routine 10/20/2024 11:18 AM LOADING MACHINE ADJUSTER COLONOSCOPY 10/20/2024 10:59 AM LOADING MACHINE ADJUSTER Hiatal HerniaNormal Colon EGD 10/20/2024 10:59 AM LOADING MACHINE ADJUSTER Hiatal HerniaNormal Colon from Last 3 Months Results * SURGICAL PATHOLOGY [facility] (10/20/2024 11:18 AM LOADING MACHINE ADJUSTER) SEE SCANNED RESULT Pathology Report 10/31/2024 12:06 PM LOADING MACHINE ADJUSTER [facility] Tissue STOMACH STRUCTURE / Unknown Non-Phlebotomy Collection / Unknown 10/20/2024 11:18 AM LOADING MACHINE ADJUSTER 10/20/2024 5:25 PM LOADING MACHINE ADJUSTER us Samuel Montana MD LAB SEND OUTS Final Result [facility] [address] [address], [place] [phone] from Last 3 Months Insurance [employer] Advance Directives * Full Code (Latest Code Status on File) Date Activated Date Inactivated Comments 10/20/2024 10:07 AM CPR-Full Bob atment: FULL ARREST: Attempt Resuscitation/CPR wit intubation and mechanical ventilation. PRE-ARREST: Use entire range of life support measures to stabilize the patient. Care Teams Insecticide Mixer Relationship Specialty Start Date End Date Jasbir Elizalde MD [address] [place] [address] PCP - General Internal Medicine 10/05/24
[2025-01-13 09:47] LABS: Basophils Percent Auto 0.3 % (0.2-1.2); Eosinophils Percent Auto 0.3 % (0-4.4); Hematocrit 41.1 % (37.0-47.0); Hemoglobin 13.7 g/dL (12.0-15.0); Immature Granulocyte Absolute 0.01 K/mm3 (0.00-0.031); Immature Granulocyte Percent A 0.3 % (0-0.5); Lymphocytes Percent Auto 34.8 % (18.3-44.2); Mean Corpuscular HGB Conc 33.3 g/dl (32-36); Mean Corpuscular Volume 87.1 fl (80-100); Mean Platelet Volume 9.5 fl (7.4-10.4); Monocytes Absolute Auto 0.4 K/mm3 (0.1-0.6); Monocytes Percent Auto 9.9 % (2.6-8.5); Neutrophils Percent Auto 54.4 % (45.5-73.1); Platelet Count Result 253 k/mm3 (150-375); Red Blood Count 4.72 M/mm3 (4.2-5.4); White Blood Count 3.7 K/mm3 (4.5-10.0)
[2025-01-13 10:22] LABS: Anion Gap 11 mmol/L (4-12); Blood Urea Nitrogen 14 mg/dL (7-17); Calcium 9.5 mg/dL (8.4-10.2); Carbon Dioxide 29 mmol/L (22-30); Chloride 100 mmol/L (98-107); Estimated Glomerular Filt Rate > 60; Glucose 96 mg/dL (65-110); Potassium 4.5 mmol/L (3.4-5.0); Sodium 140 mmol/L (137-145)
[2025-01-13 10:32] LABS: Iron 95 ug/dL (37-170)
[2025-01-13 10:43] LABS: Percent Iron Saturation 31 % (20-50)
== END 2025-01-13 09:26 | disposition home or self-care (01) ==
LOC: ANHLAB 09:29
PROVIDERS: Visit Provider Internal Medicine Hematology & Oncology
DX: D64.9 Anemia, unspecified (principal); E53.8 Deficiency of other specified B group vitamins
CPT/HCPCS: 36415; 80048; 82607; 82746; 83540; 83550; 85025

== ENCOUNTER 2025-06-22 11:41 | Outpatient (CLI) | payer OTHER, SELFPAY ==
--- OUTSIDE RECORDS SUMMARY | 2025-06-22 11:43 | XMS_ITS | Encounter Summary ---
Author Organization [facility] Address [address] [place] [address] Care Team Providers Care Aircraft Fueler Name Role Phone Jasbir Elizalde MD Primary Care Provider [phone] Encounter Details Date Type Department Care Team (Late st Contact Info) Description 04/26/2025 Results Follow-Up [facility] Diabetes and Endocrinology [address] [place] [phone] Susanna Martins, OLEG [address] [facility] [address], [place] [address] T4, free, TSH Social History Tobacco Use Types Packs/Day Years Used Date Smoking Tobacco: Never Smokeless Tobacco: Never Comments Unknown Sex and Gender Information Value Date Recorded Sex Assigned at Not on file Legal Sex Female 4:00 AM PORCELAIN MIXER Gender Identity Not on file Sexual Orientation Not on file documented as of this encounter Miscellaneous Notes * Result Encounter Note - Susanna Martins NP - 04/26/2025 3:01 PM CDT Melita Nova, In November we decreased your Synthroid to 100mcg Thursday through Thursday & stopped the Thursday dose. You're now at the low end of normal at 0.304 (normal 0.30-4.20). if you're not having any hyperthyroid symptoms (Heat intolerance, Heart racing/palpitations, loose/frequent stools, Eye or vision changes, insomnia, Muscle weakness, Anxiety/irritability/mood swings, Throat swelling/tenderness/trouble swallowing, weight loss or tremors). Then I'd like you to stay on your current Thursday through Thursday regimen. If you're having hyperthyroid symptoms: cut your Thursday dose in 12/01 but continue full tabs Thursdaythrough Thursday. Please let me know. You have an appointment on June 05; I'll give you the next laborders at that time. Please call or send a [employer] message if any questions. Thank you, Sagar Conner documented in this encounter Plan of Treatment Not on file documented as of this encounter Visit Diagnoses Not on filedocumented in this encounter Care Teams Aircraft Fueler Relationship Specialty Start Date End Date Jasbir Elizalde MD PCP - General 09/07/17 documented as of this encounter
--- OUTSIDE RECORDS SUMMARY | 2025-06-22 11:43 | XMS_ITS | Clinical Summary ---
Author Organization [facility] Address [address] [place] [address] Care Team Providers Care Computer Networking Instructor Adjunct Name Role Phone Unavailable Primary Care Provider [...] Screening with HPV 2000 Mammogram Screening 2010 Pneumococcal Vaccine: 50+ Ye ars (1 of 1 - PCV) 2020 Zoster Vaccines (1 of 2) 2020 COVID-19 Vaccine (2023-2 5 season) 2024 Meningococcal B Vaccine Aged Out No l onger eligible based on patient's age to complete this topic Meningococcal Vaccine Aged Out No arleth karrie eligible based on patient's age to complete this topic RSV Immunizations Under 20 Months Aged Out No longer eligible based on patient's age to complete this topic
--- OUTSIDE RECORDS SUMMARY | 2025-06-22 11:43 | XMS_ITS | Clinical Summary ---
Author Organization [facility] Address [address] [place] [address] Phone Care Team Providers Care Corporate Event Planner Name Role Phone Jasbir Elizalde MD Primary Care Provider [phone] Allergies Active Allergy Reactions Criticality Noted Date [...] Active Active Problems No known active problems Immunizations Immunization Administration Dates Next Due Covid-19, [...] Sex Assigned at Female 10/20/2024 9:34 AM LOCKSTITCH FRONT MAKER Legal Sex Female 11:30 AM LOCKSTITCH FRONT MAKER Gender Identity Female 10/21/2024 11:00 AM LOCKSTITCH FRONT MAKER Sexual Orientation Not on file Last Filed Vital Signs Vital Sign Reading Time Taken Comments Blood Pressure 130/75 10/20/2024 12:18 PM LOCKSTITCH FRONT MAKER Pulse 71 10/20/2024 12:18 PM LOCKSTITCH FRONT MAKER Temperature 36.4 C (97.6 F) 10/20/2024 11:48 AM LOCKSTITCH FRONT MAKER Simultaneous filing. User may not have seen previous data. Respiratory Rate 12 10/20/2024 12:1 8 PM LOCKSTITCH FRONT MAKER Oxygen Saturation 100% 10/20/2024 12: 18 PM LOCKSTITCH FRONT MAKER Inhaled Oxygen Concentration - - Weight 83 kg (183 lb) 10/20/2024 10:02 AM LOCKSTITCH FRONT MAKER Height 175.3 cm (5' 9) 10/05/2024 11:0 0 AM LOCKSTITCH FRONT MAKER Body Mass Index 27.02 10/05/2024 11:00 AM LOCKSTITCH FRONT MAKER Plan of Treatment Health Maintenance Due Date Last Done Comments Hepatitis C Virus (HCV) Screening 1970 TdaP Immunization 1970 Pap Smear 1991 Cervical Cancer Screening (CCS) 2000 HPV/Cotest 2000 Hepatitis B Immunization (2 of 3 - 19+ 3-dose series) 10/24/2002 09/26/2002 Cologuard 2015 Immunochemical Fecal Occult Blood 2015 Pneumococcal Immunization (5 0+ years) (1 of 1 - PCV) 2020 Zoster Immunization (1 of 2) 2020 SARS-COV-2 Immunization (4 - 2023- season) 2024 12/25/2021, 02/11/2021, 01/21/2021 Mammogram 05/02/2025 05/02/2024, 05/26/2022, 06/22/2020 Influenza Immunization (#1) 2025 11/0 03/2017, 09/18/2016 Colonoscopy 10/20/2034 10/20/2024 Colorectal Cancer Screening 10/20/2034 Respiratory Syncytial Virus (RSV) Immunization (Adult) (1 - 1-dose 75+ series) 2045 DTaP/Tdap/Td Immunization Discontinued 09/15/2008 Human Papillomavirus (HPV) Immunization Aged Out No longer eligible based on patient's age to complete this topic Meningococcal Immunization (ACWY) Aged Out No longer eligible based on patient's age to complete this topic Rotavirus Immunization Aged Out No lo nger eligible based on patient's age to complete this topic Insurance [employer] Advance Directives * Full Code (Latest Code Status on File) Date Activated Date Inactivated Comments 10/20/2024 10:07 AM CPR-Full Bob atment: FULL ARREST: Attempt Resuscitation/CPR wit intubation and mechanical ventilation. PRE-ARREST: Use entire range of life support measures to stabilize the patient. Care Teams Corporate Event Planner Relationship Specialty Start Date End Date Jasbir Elizalde MD [address] [place] [address] PCP - General Internal Medicine 10/05/24
--- OUTSIDE RECORDS SUMMARY | 2025-06-22 11:43 | XMS_ITS | Clinical Summary ---
Author Organization [facility] Address [facility] [place] [address] Care Team Providers Care Customer Account Manager Name Role Phone Jasbir Elizalde MD Primary Care Provider [phone] Allergies Active Allergy Reactions Criticality Noted Date Comments Iodinated Contrast Media Other (See comments) Medium 10/05/2024 Double vision, migraines Iodine Rash Medium 02/25/2023 Phenazopyridine Headache Low 01/18/2015 Medications cetirizine (ZyrTEC) 10 mg tablet Take 1 tablet (10 mg total) by mouth daily Active cyanocobalamin (Vitamin B-12) 1,000 mcg/mL injection Inject 1 mL (1,000 mcg total) into the muscle as instructed once a week 08/04/20 23 Active syringe with needle (BD Luer-Jatin Syringe) 3 mL 25 gauge x 1 syringe Use with Vitamin B12 injection monthly. 07/02/20 23 Active syringe with needle 1 mL 27 x 1/2 syringe Use with B12 injections. 08/04/20 23 Active naproxen sodium 220 mg capsule Take 2 capsules by mouth as needed Active Eclipse Syringe 3 mL 25 gauge x 1 syringe USE DIRECTED MONTHLY 11/15/20 24 Active venlafaxine XR (EFFEXOR-XR) 75 mg 24 hr capsule Take by mouth daily 11/17/20 24 Active levothyroxine (Synthroid) 100 mcg tabletIndications :Acquired hypothyroidism Take 1 tablet (100 mcg total) by mouth 6 (six) times a week 72 tablet 1 06/05/20 25 Active Synthroid 100 mcg tabletIndications :Acquired hypothyroidism TAKE 1 TABLET EVERY MORNING BEFORE BREAKFAST FOR HYPOTHYROIDISM 30 tablet 2 01/02/20 025 Betsey seymour(Reo rder) Active Problems Problem Noted Date Diagnosed Date Acquired hypothyroidism 01/07/2024 Assessment & Plan (06/05/2025 11:16 AM CDT): Chronic problem. Currently on Synthroid 100mcg Thursday-Thursday, 12/01 tab Thursday, none on Thursday (since 04/26/25). Aware to take 1st thing in morning, 30-60 minutes before food/drink/other medications. Will update TFTs (goes to [facility]) in 1 mo. Verified that she uses mychart. Aware to check results/results letter in mychart. Will contact by phone if needed. Assessment & Plan (12/02/2024 10:01 AM GUIDE): Chronic problem. Reports increased hypothyroid symptoms with decrease in Synthroid. Aware to take 1st thing in morning, 30-60 minutes before food/drink/other medications. Will update TFTs today (goes to [facility]). Verified that she uses mychart. Aware to check results/results letter in mychart. Will contact by phone if needed. Assessment & Plan (06/01/2024 11:56 AM CDT): Chronic problem. Reports increased hypothyroid symptoms with decrease in Synthroid. Will update TFTs today (goes to [facility]). Aware to take 1st thing in morning, 30-60 minutes before food/drink/other medications. Assessment & Plan (01/07/2024 3:47 PM GUIDE): Goal of treatment is a normal TSH Update TFTs Adjust dose of Synthroid if indicated ( Send rx to [facility] ) Encounters Date Type Department Care Team Description 06/07/2025 11:15 AM CDT Ancillary Procedure [facility] [address] [place] [address] Screening mammogram, encounter for 06/05/2025 11:00 AM CDT Office Visit [facility] Diabetes and Endocrinology [address] [place] [phone] Susanna Martins NP Acquired hypothyroidism (Primary Dx) 04/26/2025 Results Follow-Up [facility] Diabetes [facility] Endocr[facility]ology [address] [place] [phone] Susanna Martins NP T4, free, TSH from Last 3 Months Surgical History Surgery [...] Family history of hypertension - (Added by Conv) Lung cancer Mother Family history of lung cancer - (Added by Conv) Relation Name Status Comments Father Mother Social History Tobacco Use Types Packs/Day Years Used Date Smoking Tobacco: Never Smokeless Tobacco: Never Comments No Sex and Gender Information Value Date Recorded Sex Assigned at Not on file Legal Sex Female 4:00 AM GUIDE Gender Identity Not on file Sexual Orientation Not on file Obstetrics History Para Term AB IAB SAB Ectopic Multiple Livin g Live Births 4 3 Date Outcome GA Total Labor Labor/2nd/3rd Weight Sex Type Anes PTL Adriane A1 A5 Name Clin Last Filed Vital Signs Vital Sign Reading Time Taken Comments Blood Pressure 104/70 06/05/2025 10:58 AM CDT Pulse 72 06/05/2025 10:58 AM CDT Temperature - - Respiratory Rate 18 06/05/2025 10:58 AM CDT Oxygen Saturation 99% 09/13/2015 9:13 AM CDT Inhaled Oxygen Concentration - - Weight 88.5 kg (195 lb) 06/07/2025 11:23 AM CDT Height 175.3 cm (5' 9) 06/07/2025 11:23 AM CDT Body Mass Index 28.8 06/07/2025 11:23 AM CDT Plan of Treatment Health Maintenance Due Date Last Done Comments Cervical Cancer Screening 1970 Colon Cancer Screening-Colonoscopy 1970 Depression Screening 1970 Hepatitis C Screening 1970 Regular Well Visit/Exam 18-64 1988 DTaP/Tdap/Td Vaccine (1 - Tdap) 09/16/2008 09/15/2008 Zoster Vaccine (1 of 2) 2020 Covid-19 Vaccine (2 - season) 2024 12/25/2021 Influenza Vaccine (#1) 2025 7, 09/18/2016, 09/13/2015 Breast Cancer Screening-Mammogram 06/07/2026 06/07/2025, 05/02/2024, 05/26/2022, Additional history exists Hepatitis B Screening Completed 09/26/2002 Pneumococcal vaccine <65 Aged Out No longer eligible based on patient's age to complete this topic Procedures Procedure Name Priority Date/Time Associated Diagnosis Comments SCREENING MAMMOGRAM BILATERAL W DONN Schedule Routine, Read Routine (OP Routine) 06/07/2025 11:22 AM CDT Screening mammogram, encounter for TSH Routine 04/25/2025 7:36 AM CDT Acquired hypothyroidism T4, FREE Routine 04/25/2025 7:36 AM CDT Acquired hypothyroidism from Last 3 Months Results * Screening Mammogram Bilateral W Donn (06/07/2025 11:22 AM CDT) Anatomical Region Laterality Modality Breast Bilateral Mammography Impressions 06/08/2025 7:11 AM CDT Bilateral No evidence of malignancy in either breast. OVERALL BI-RADS FINAL ASSESSMENT: 1 - Negative RECOMMENDATION: Recommend bilateral annual screening mammography. Narrative 06/08/2025 7:11 AM CDT EXAMINATION: Screening Mammogram Bilateral W Donn: 06/07/2025 COMPARISON: Relevent prior studies available at the time of interpretation were reviewed, including the most recent mammogram on: 05/02/2024. TECHNIQUE: Mammography was performed with 2D and digital breast tomosynthesis (DBT) images. CAD was utilized. BREAST PARENCHYMAL COMPOSITION: The breasts are heterogeneously dense, which may obscure small masses. FINDINGS: Bilateral There is no suspicious mass, calcification, or architectural distortion in either breast. us Self Screening Mammogram IMG MAMMO PROCEDURES Fi nal Result * (ABNORMAL) TSH (04/25/2025 7:36 AM CDT) TSH 0.304(L) 0.450 - 4.500 uIU/mL [facility] - 01 Blood 04/25/2025 7:36 AM CDT 04/25/2025 Narrative [facility] - 04/26/2025 4:07 AM CDT Performed at: [address] [place] [id number] Communications Equipment Installer: Akash Melendez PhD, Phone: [phone] Susanna Martins MANAGER CHANGE LAB BLOOD ORDERABLES Shelia l Result Performing Organization Address [facility] Co de Phone Number [facility] - * T4, free (04/25/2025 7:36 AM CDT) Pathologist [facility] T4,Free(Direct) 1.17 0.82 - 1.77 ng/dL [facility] - 01 Blood 04/25/2025 7:36 AM CDT 04/25/2025 Narrative [facility] - 04/26/2025 4:07 AM CDT Performed at: [address] [place] [address] [id number] Communications Equipment Installer: Akash Melendez PhD, Phone: [phone] Susanna Martins MANAGER CHANGE LAB BLOOD ORDERABLES Shelia l Result [facility] - from Last 3 Months Insurance [employer] OPEN ACCESS [employer] Care Teams Customer Account Manager Relationship Specialty Start Date End Date Jasbir Elizalde MD PCP - General 09/07/17
--- OUTSIDE RECORDS SUMMARY | 2025-06-22 11:43 | XMS_ITS | Encounter Summary ---
Author Organization [facility] Healthcare Address [address] [place] [address] Care Team Providers Care Large Animal Husbandry Technician Name Role Phone Jasbir Elizalde MD Primary Care Provider [phone] Encounter Details Date Type Department Care Team (Late st Contact Info) Description 06/21/2020 Telephone [facility] [address] [place] [address] [address] [place] [address] Arline Greenwood RT Social History Tobacco Use Types Packs/Day Years Used Date Smoking Tobacco: Never Comments Unknown Sex and Gender Information Value Date Recorded Sex Assigned at Not on file Legal Sex Female 4:00 AM FORENSIC COMPUTER EXAMINER Gender Identity Not on file Sexual Orientation Not on file documented as of this encounter Plan of Treatment Not on file documented as of this encounter Visit Diagnoses Not on filedocumented in this encounter Care Teams Large Animal Husbandry Technician Relationship Specialty Start Date End Date Jasbir Elizalde MD PCP - General 09/07/17 documented as of this encounter
--- OUTSIDE RECORDS SUMMARY | 2025-06-22 11:43 | XMS_ITS | Referral Summary ---
Author Organization [facility] Address [address] [place] [phone] Care Team Providers Care Roll Or Tape Edge Machine Operator Name Role Phone Jasbir Elizalde MD Primary Care Provider Encounters Date Type Department Care Team Description 06/07/2025 11:15 AM CDT Ancillary Procedure [facility] Breast Imaging [address] [place] [phone] Screening mammogram, encounter for 06/05/2025 11:00 AM CDT Office Visit [facility] Diabetes and Endocrinology [address] [place] [phone] Susanna Martins NP Acquired hypothyroidism (Primary Dx) 04/26/2025 Results Follow-Up [facility] Diabetes [facility] Endocrinology [address] [place] [phone] Susanna Martins NP T4, free, TSH from Last 3 Months Allergies Active Allergy [...] BREAKFAST FOR HYPOTHYROIDISM 30 tablet 2 01/02/20 25 025 Disconti nued(Reo rder) Active Problems Problem Noted Date Diagnosed Date Acquired hypothyroidism 01/07/2024 Assessment & Plan (06/05/2025 11:16 AM CDT): Chronic problem. Currently on Synthroid 100mcg Thursday-Thursday, 1 tab Thursday, none on Thursday (since 04/26/25). Aware to take 1st thing in morning, 30-60 minutes before food/drink/other medications. Will update TFTs (goes to [facility]) in 1 mo. Verified that she uses mychart. Aware to check results/results letter in mychart. Will contact by phone if needed. Assessment & Plan (12/02/2024 10:01 AM MILD DISABILITIES TEACHER): Chronic problem. Reports increased hypothyroid symptoms with [...] medications. Assessment & Plan (01/07/2024 3:47 PM MILD DISABILITIES TEACHER): Goal of treatment is a normal TSH Update TFTs Adjust dose of Synthroid if indicated ( Send rx to [facility] ) Social History Tobacco Use Types Packs/Day Years Used Date Smoking Tobacco: Never Smokeless Tobacco: Never Comments No Sex and Gender Information Value Date Recorded Sex Assigned at Not on file Legal Sex Female 4:00 AM MILD DISABILITIES TEACHER Gender Identity Not on file Sexual Orientation [...] 06/07/2025 11:23 AM CDT Plan of Treatment Not on file Procedures [...] * (ABNORMAL) TSH (04/25/2025 7:36 AM CDT) Pathologist [facility] TSH 0.304(L) 0.450 - 4.500 uIU/mL [facility] - 01 Blood 04/25/2025 7:36 AM CDT 04/25/2025 Narrative [facility] - 04/26/2025 4:07 AM CDT Performed at: [address] [place] [id number] Call Center Associate: Akash Melendez PhD, Phone: [phone] Susanna Martins CONVENTIONAL UNDERWRITER LAB BLOOD ORDERABLES Shelia l Result Performing Organization Address [facility]/ZIP Co de Phone Number [facility] - 01 * T4, free (04/25/2025 7:36 AM CDT) Pathologist [facility] T4,Free(Direct) 1.17 0.82 - 1.77 ng/dL [facility] - 01 Blood 04/25/2025 7:36 AM CDT 04/25/2025 Narrative [facility] - 04/26/2025 4:07 AM CDT Performed at: [address] [place] [id number] Call Center Associate: Akash Melendez PhD, Phone: [phone] Susanna Martins NP LAB BLOOD ORDERABLES Shelia l Result [facility] - 01 from Last 3 Months Insurance [employer] OPEN ACCESS [employer] Care Teams Roll Or Tape Edge Machine Operator Relationship Specialty Start Date End Date Jasbir Elizalde MD PCP - General 09/07/17
--- OUTSIDE RECORDS SUMMARY | 2025-06-22 11:43 | XMS_ITS | Clinical Summary ---
Author Organization [facility] Peggy Baca Address [address] [place] [address] Care Team Providers Care Eyewear Consultant Name Role Phone Jasbir Elizalde MD Primary Care Provider [phone] Allergies Active Allergy Reactions Criticality Noted Date Comments Iodine Rash Low 02/25/2023 Phenazopyridine Headache Low 02/25/2023 Medications levothyroxine 100 mcg tablet Take 100 mcg by mouth daily in the morning. Active cetirizine (ZyrTEC) 10 mg tablet Take 10 mg by mouth daily. Active venlafaxine (EFFEXOR XR) 37.5 mg Extended Release 24 hour capsule Take 75 mg by mouth daily. 12/20/19 24 Active cyanocobalamin (VITAMIN B-12) 1,000 mcg/mL SolutionIndica tions:Chronic anemia,B12 deficiency Inject 1 mL (1,000 mcg) by intramuscular injection every 2 weeks. 4 mL 6 07/07/20 24 Active Syringe with Needle, Disp, (BD Luer-Jatin Syringe) 3 mL 25 gauge x 1 SyringeIndicat ions:Chronic anemia,B12 deficiency Use with Vitamin B12 injection monthly. 4 Each 6 07/07/20 24 Active Syringe with Needle, Disp, 1 mL 27 x 1/2 SyringeIndicat ions:Chronic anemia,B12 deficiency Use with B12 injections. 3 Each 06/13/20 25 Active Syringe with Needle, Disp, 1 mL 27 x 1/2 SyringeIndicat ions:Chronic anemia,B12 deficiency Use with B12 injections. 3 Each 6 01/25/20 24 025 Discontin ued(Reord er) Active Problems No known active problems Encounters Date Type Department Care Team Description 06/14/2025 External Device Data ST[facility] ABSTRACTION Provider, Abstract 06/13/2025 External Device Data [facility] ABSTRACTION Provider, Abstract 06/13/[address] [facility] Oncology and Hematology - [facility] [employer] Hoff [address] [place] [phone] Rocky Gonzales MD Chronic anemia; B12 deficiency 05/16/2025 External Device Data [facility] ABSTRACTION Provider, Abstract 04/20/2025 External Device Data [facility] ABSTRACTION Provider, Abstract 04/18/2025 External Device Data [facility] ABSTRACTION Provider, Abstract 04/04/2025 External Device Data ST[facility] ABSTRACTION Provider, Abstract from Last 3 Months Family History Medical History Relation Name Comments No Known Problems Brother No Known Problems Daughter Cancer Father Heart Disease Father Lung Cancer Mother No Known Problems Sister 1 No Known Problems Sister 2 No Known Problems Sister 3 No Known Problems Son 1 No Known Problems Son 2 Relation Name Status Comments Brother Daughter Alive Father Mother Sister 1 Alive Sister 2 Alive Sister 3 Alive Son 1 Alive Son 2 Alive Social History Tobacco Use Types Packs/Day Years Used Date Smoking Tobacco: Never Smokeless Tobacco: Never Tobacco Cessation:Counseling Given: Not Answered Alcohol Use Standard Drinks/Week Comments Yes 2 (1 standard drink = 0.6 oz pur e alcohol) Comments Unknown Sex and Gender Information Value Date Recorded Sex Assigned at Not on file Legal Sex Female 4:09 PM STATISTICAL ANALYST Gender Identity Not on file Sexual Orientation Not on file Last Filed Vital Signs Vital Sign Reading Time Taken Comments Blood Pressure 132/87 01/16/2025 10:09 AM STATISTICAL ANALYST Pulse 82 01/16/2025 10:09 AM STATISTICAL ANALYST Temperature 36.2 C (97.1 F) 01/16/2025 10:09 AM STATISTICAL ANALYST Respiratory Rate 16 01/16/2025 10:09 AM STATISTICAL ANALYST Oxygen Saturation 98% 01/16/2025 10:09 AM STATISTICAL ANALYST Inhaled Oxygen Concentration - - Weight 86.8 kg (191 lb 6.4 oz) 01/16/2025 10:09 AM STATISTICAL ANALYST Height 179.8 cm (5' 10.8) 02/25/2023 1:27 PM CD T Body Mass Index 26.85 02/25/2023 1:27 PM CDT Plan of Treatment Upcoming Encounters Date Type Department Care Team (Late st Contact Info) Description 07/07/2025 8:45 AM CDT Office Visit [facility] Oncology and Hematology - [facility] [address] [facility] [address] [place] [address] Rocky Gonzales MD [address] [facility] [address] [place] [address] Health Maintenance Due Date Last Done Comments Pre-Diabetes and Diabetes Screening 1970 DTAP/TDAP/TD VACCINES (1 - Tdap) 1989 HEPATITIS B VACCINES (1 of 3 - 19+ 3-dose series) 1989 HPV/Cotest (21-29) 1991 CERVICAL CANCER SCREENING 2000 HPV/Cotest (30-65) 2000 PAP SMEAR 2000 COLORECTAL SCREENING 2015 Colorectal Cancer Screening 2015 FIT-DNA Q 3 years 2015 FIT/FOBT Q 1 year 2015 Flex Sig/CT Colonography Q 5 years 2015 ZOSTER VACCINE (1 of 2) 2020 COVID-19 Vaccine (2 - 2023-2 5 season) 2024 12/25/2021 Preventative Visit- Commercial 11/30/2024 BREAST CANCER SCREENING 05/02/2025 05/02/20 24, 05/02/2024, 05/26/2022, Additional history exists INFLUENZA VACCINE (#1) 2025 Insurance [employer] [facility] [place] [employer] [facility] Care Teams Eyewear Consultant Relationship Specialty Start Date End Date Jasbir Elizalde MD [address] [place] [address] PCP - General Internal Medicine 02/25/23
[2025-06-22 11:52] LABS: Hematocrit 38.8 % (37.0-47.0); Hemoglobin 12.7 g/dL (12.0-15.0); Immature Granulocyte Percent A 0.2 % (0-0.5); Lymphocytes Absolute Auto 1.52 K/mm3 (0.9-3.2); Mean Corpuscular HGB Conc 32.7 g/dl (32-36); Mean Corpuscular Hemoglobin 28.8 pg (26-34); Mean Corpuscular Volume 88.0 fl (80-100); Nucleated Red Blood Cells Absolute Auto 0.000 K/mm3 (0.0-0.012); Nucleated Red Blood Cells Perc 0.0 % (0.0-0.2); Platelet Count Result 262 k/mm3 (150-375); Red Blood Count 4.41 M/mm3 (4.2-5.4); White Blood Count 5.0 K/mm3 (4.5-10.0)
[2025-06-22 13:46] LABS: Iron 81 ug/dL (37-170)
[2025-06-22 14:05] LABS: Percent Iron Saturation 24 % (20-50)
[2025-06-22 14:31] LABS: Ferritin 16.30 ng/mL (11.1-264)
[2025-06-22 15:04] LABS: Vitamin B12 782.0 pg/mL (239-931)
== END 2025-06-22 11:42 | disposition home or self-care (01) ==
PROVIDERS: Visit Provider Internal Medicine Hematology & Oncology
DX: D64.9 Anemia, unspecified (principal)
CPT/HCPCS: 36415; 82607; 82728; 82746; 83540; 83550; 85025